=== PATIENT | male | born 1960 | race Caucasian/White ===

== ENCOUNTER 2016-08-25 21:36 | Inpatient (IN) | payer MEDICARE, MEDICAID, OTHER ==
[2016-08-25 22:32] VITALS: BMI 36.5
[2016-08-25] MEDS ORDERED: Sodium Chloride 0.9% 1,000 ML IV STA (23:30)
[2016-08-25 23:59] LABS: HEMATOCRIT 42.8 % (42.0-52.0); MEAN CELL VOLUME 95.7 fL (80.0-105.0); MEAN CORPUSCULAR HEMOGLOBIN 33.6 pg (25.0-35.0); MEAN PLATELET VOLUME 8.7 fl (7.0-11.0); RED CELL DISTRIBUTION WIDTH 13.4 % (11.5-14.5); WHITE BLOOD COUNT 12.9 10^3/ul (4.5-11.0)
[2016-08-26 00:09] LABS: ALKALINE PHOSPHATASE 84 U/L (38-133); ALT/SGPT 50 U/L (7-56); AST/SGOT 51 U/L (15-59); BILIRUBIN,TOTAL 0.8 mg/dL (0.2-1.3); BLOOD UREA NITROGEN 22 mg/dL (7-21); CALCIUM 9.1 mg/dL (8.4-10.5); CARBON DIOXIDE 29 mmol/L (21-33); CHLORIDE 98 mmol/L (98-107); GFR AFRICAN-AMERICAN > 60; GLUCOSE,RANDOM 116 mg/dL (70-110); LIPASE 262 U/L (23-300); POTASSIUM 4.2 mmol/L (3.6-5.0); SODIUM 136 mmol/L (132-148); TOTAL PROTEIN 7.9 g/dL (5.8-8.3)
--- NOTE | 2016-08-26 01:43 | ED PDOC ---
Arrival/HPI - General Chief Complaint: Abdominal Pain Time Seen by Provider: 08/25/16 23:01 Historian: Patient - History of Present Illness Narrative History of Present Illness (Text): 08/26/16 01:40 56 year old male whose past medical history includes hypertension, diabetes, and COPD complaining of nausea,intermittent vomiting, and diarrhea for the past week. Patient also notes intermittent abdominal cramp-like discomfort. He denies fever, chills, chest pain, or shortness of breath. He denies any travel outside the [place]. Time/Duration: 1 week Symptom Onset: Gradual Symptom Course: Unchanged Activities at Onset: Rest Past Medical History - Provider Review Nursing Documentation Reviewed: Yes - Tetanus Immunization Tetanus Immunization: Unknown - Cardiac Hx Cardiac Disorders: Yes Hx Angina: Yes Hx Cardiac Arrhythmia: No Hx Hypertension: Yes - Pulmonary Hx Respiratory Disorders: Yes Hx Asthma: Yes Hx Chronic Obstructive Pulmonary Disease (COPD): Yes Hx Emphysema: Yes - Neurological Hx Neurological Disorder: No - HEENT Hx HEENT Disorder: No - Renal Hx Renal Disorder: No - Endocrine/Metabolic Hx Endocrine Disorders: Yes Hx Diabetes Mellitus Type 2: Yes (diet controlled) - Hematological/Oncological Hx Blood Disorders: No - Integumentary Hx Dermatological Disorder: No - Musculoskeletal/Rheumatological Hx Musculoskeletal Disorders: Yes Hx Arthritis: Yes (spine, neck) Hx Back Pain: Yes Hx Falls: No Hx Osteoarthritis: Yes - Gastrointestinal Hx Gastrointestinal Disorders: No - Genitourinary/Gynecological Hx Genitourinary Disorders: No - Psychiatric Hx Psychophysiologic Disorder: No Hx Depression: No Hx Emotional Abuse: No Hx Physical Abuse: No Hx Substance Use: No - Surgical History Hx Cardiac Catheterization: Yes (feb 2012 neg) Hx Joint Replacement: Yes (bilateral hip replacement) Hx Orthopedic Surgery: Yes (B/L HIP REPLACEMENT) - Anesthesia Hx Anesthesia: Yes Hx Anesthesia Reactions: No Hx Malignant Hyperthermia: No - Suicidal Assessment Feels Threatened In Home Enviroment: No Family/Social History - Physician Review Nursing Documentation Reviewed: Yes Family/Social History: Unknown Family HX Smoking Status: Former Smoker Hx Alcohol Use: No Hx Substance Use: No Hx Substance Use Treatment: No Allergies/Home Meds Allergies/Adverse Reactions: Allergies No Known Allergies Allergy (Verified 08/25/16 22:32) Home Medications: Home Meds Medication Instructions Recorded Confirmed Albuterol HFA [Ventolin HFA 90 0.09 mg IH PRN PRN 04/24/12 08/25/16 mcg/actuation (8 g)] Lisinopril 20 mg PO DAILY 04/24/12 08/25/16 Metformin HCl 1,000 mg PO BID 04/24/12 08/25/16 Budesonide/Formoterol Fumarate 160 mcg BID 03/03/13 08/25/16 [Symbicort 80-4.5 Mcg Inhaler] Montelukast Sodium [Singulair] 10 mg PO DAILY 03/03/13 08/25/16 Cyclobenzaprine HCl [Flexeril] 10 mg PO TID PRN 02/15/16 08/25/16 Esomeprazole Magnesium [Nexium] 40 mg PO DAILY 02/15/16 08/25/16 Canagliflozin [Invokana] 300 mg PO DAILY 08/25/16 08/25/16 SITagliptin [Januvia] 100 mg PO DAILY 08/25/16 08/25/16 Review of Systems - Physician Review All systems were reviewed & negative as marked: Yes - Review of Systems Constitutional: absent: Fevers, Other (no chills) Respiratory: absent: SOB Cardiovascular: absent: Chest Pain Gastrointestinal: Diarrhea, Nausea, Vomiting, Other (+abdominal cramp-like discomfort) Physical Exam Vital Signs Reviewed: Yes Vital Signs Temp Pulse Resp BP Pulse Ox 08/26/16 04:17 81 16 104/66 95 08/26/16 03:35 78 16 112/62 99 08/26/16 00:00 84 16 106/56 L 93 L 08/25/16 22:34 99.7 F H 100 H 15 139/84 95 Temperature: Afebrile Blood Pressure: Normal Pulse: Regular Respiratory Rate: Normal Appearance: Positive for: Well-Appearing, Non-Toxic, Comfortable Pain Distress: None Mental Status: Positive for: Alert and Oriented X 3 - Systems Exam Head: Present: Atraumatic, Normocephalic Pupils: Present: PERRL Extroacular Muscles: Present: EOMI Conjunctiva: Present: Normal Mouth: Present: Moist Mucous Membranes Neck: Present: Normal Range of Motion Respiratory/Chest: Present: Clear to Auscultation, Good Air Exchange. No: Respiratory Distress, Accessory Muscle Use, Wheezes, Rales, Tachypneic Cardiovascular: Present: Regular Rate and Rhythm, Normal S1, S2. No: Murmurs, Gallop, Muffled Abdomen: Present: Normal Bowel Sounds. No: Tenderness, Distention, Peritoneal Signs, Rebound, Guarding Back: Present: Normal Inspection Upper Extremity: Present: Normal Inspection. No: Cyanosis, Edema Lower Extremity: Present: Normal Inspection. No: Edema Neurological: Present: GCS=15, CN II-XII Intact, Speech Normal Skin: Present: Warm, Dry, Normal Color. No: Rashes Psychiatric: Present: Alert, Oriented x 3, Normal Insight, Normal Concentration Medical Decision Making ED Course and Treatment: 08/26/16 01:44 Impression: 56 year old male complaining of nausea, vomiting, diarrhea, and abdominal discomfort. Physical exam unremarkable. Plan: --EKG --Labs --Pepcid, Zofran, Toradol, Morphine -- Reassess and disposition Prior Visits: Notes and results from previous visits were reviewed. Progress Notes: 08/26/16 01:45 EKG: Ordered, reviewed, and independently interpreted the EKG. Rate : 98 BPM Rhythm : NSR Interpretation : No acute changes 08/26/16 04:57 EXAM:CT Abdomen and Pelvis Without Intravenous Contrast Dictated and Authenticated by: Carlos Machado MD FINDINGS: Lower thorax: No acute findings. ABDOMEN: Liver: Fatty infiltration. Lobulated contour. Gallbladder and bile ducts: No calcified stones. No ductal dilation. Pancreas: Unremarkable. No ductal dilation. Spleen: No splenomegaly. Adrenals: No mass. Kidneys and ureters: No renal calculi. No hydronephrosis. Stomach and bowel: No definite mural thickening. Few minimally distended loops of small bowel, likely ileus. Appendix: Normal caliber. No inflammation. PELVIS: Bladder: Unremarkable. No stones. Reproductive: Unremarkable as visualized. ABDOMEN and PELVIS: Intraperitoneal space: No significant fluid collection. No free air. Bones/joints: Degenerative changes of spine. Bilateral hip arthroplasties. Soft tissues: Unremarkable. Vasculature: Unremarkable. No abdominal aortic aneurysm. Lymph nodes: No pathologically enlarged lymph nodes. IMPRESSION: 1. No definite acute intraabdominal abnormality. 2. Probable cirrhosis. 3. Incidental/non-acute findings are described above. - Lab Interpretations Lab Results: 08/25/16 23:50 08/25/16 23:50 Lab Results 08/25/16 23:50: WBC 12.9 H, RBC 4.47, Hgb 15.0, Hct 42.8, MCV 95.7, MCH 33.6, MCHC 35.0, RDW 13.4, Plt Count 188, MPV 8.7, Sodium 136, Potassium 4.2, Chloride 98, Carbon Dioxide 29, Anion Gap 13, BUN 22 H, Creatinine 0.9, Est GFR ( Amer) > 60, Est GFR (Non-Af Amer) > 60, Random Glucose 116 H, Calcium 9.1, Total Bilirubin 0.8, AST 51, ALT 50, Alkaline Phosphatase 84, Total Protein 7.9, Albumin 3.9, Globulin 4.0, Albumin/Globulin Ratio 1.0 L, Lipase 262 I have reviewed the lab results: Yes - RAD Interpretation Radiology Orders: 08/26/16 02:24 ABD & PELVIS W/O PO OR IV CONT [CT] Stat - Medication Orders Current Medication Orders: Discontinued Medications Famotidine (Pepcid) 20 mg IVP STAT STA Stop: 08/25/16 23:31 Last Admin: 08/26/16 00:01 Dose: 20 MG IVP Administration Document 08/26/16 00:01 EKE (Rec: 08/26/16 00:01 [place] [id number]- ATTEND) Charges for Administration # of IVP Administrations 1 Sodium Chloride (Sodium Chloride 0.9%) 1,000 mls @ 999 mls/hr IV .Q1H1M STA Stop: 08/26/16 00:30 Last Admin: 08/26/16 00:00 Dose: 999 MLS/HR eMAR Start Stop Document 08/26/16 00:00 EKE (Rec: 08/26/16 00:00 [place] [id number]- ATTEND) Intravenous Solution Start Date 08/26/16 Start Time 00:00 Ketorolac Tromethamine (Toradol) 30 mg IVP ONCE ONE Stop: 08/25/16 23:31 Last Admin: 08/26/16 00:01 Dose: 30 MG IVP Administration Document 08/26/16 00:01 EKEOO (Rec: 08/26/16 00:01 [place] [id number]- ATTEND) Charges for Administration # of IVP Administrations 1 Morphine Sulfate (Morphine) 4 mg IVP STAT STA Stop: 08/26/16 01:46 Last Admin: 08/26/16 01:59 Dose: 4 MG MAR Pain Assessment Document 08/26/16 01:59 EKEOO (Rec: 08/26/16 01:59 EKE[place] [id number]- ATTEND) Pain Reassessment Is this a pain reassessment? No Sleep Is patient sleeping during reassessment? No Presence of Pain Presence of Pain Yes IVP Administration Document 08/26/16 01:59 EKEOO (Rec: 08/26/16 01:59 EKE[place] [id number]- ATTEND) Charges for Administration # of IVP Administrations 1 Ondansetron HCl (Zofran Inj) 4 mg IVP ONCE ONE Stop: 08/25/16 23:31 Last Admin: 08/26/16 00:01 Dose: 4 MG IVP Administration Document 08/26/16 00:01 EKEOO (Rec: 08/26/16 00:01 EKEOO [id number]- ATTEND) Charges for Administration # of IVP Administrations 1 Ondansetron HCl (Zofran Inj) 4 mg IVP ONCE ONE Stop: 08/26/16 01:46 Last Admin: 08/26/16 01:59 Dose: 4 MG IVP Administration Document 08/26/16 01:59 EKEOO (Rec: 08/26/16 01:59 EKEOO [id number]- ATTEND) Charges for Administration # of IVP Administrations 1 - Scribe Statement The provider has reviewed the documentation as recorded by the Scribe Provider Attestation: Fallon Vasquez Provider Scribe Attestation: All medical record entries made by the Scribe were at my direction and personally dictated by me. I have reviewed the chart and agree that the record accurately reflects my personal performance of the history, physical exam, medical decision making, and the department course for this patient. I have also personally directed, reviewed, and agree with the discharge instructions and disposition. Disposition/Present on Arrival - Present on Arrival Any Indicators Present on Arrival: No History of DVT/PE: No History of Uncontrolled Diabetes: Yes Urinary Catheter: No History of Decub. Ulcer: No History Surgical Site Infection Following: None - Disposition Have Diagnosis and Disposition been Completed?: Yes Diagnosis: Intractable diarrhea, Abdominal pain, Ileus Disposition: HOSPITALIZED Disposition Time: 05:19 Patient Plan: Observation Condition: STABLE Referrals: Rich Menon MD [Primary Care Provider] - Follow up with primary
[2016-08-26] MEDS ORDERED: Morphine 4 mg/ml ISec IVP STA ×2 (01:45→05:23)
--- NOTE | 2016-08-26 04:14 | CT ---
EXAM: CT Abdomen and Pelvis Without Intravenous Contrast CLINICAL HISTORY: 56 years old, male; Pain; Abdominal pain TECHNIQUE: Axial computed tomography images of the abdomen and pelvis without intravenous contrast. This CT exam was performed using one or more of the following dose reduction techniques: automated exposure control, adjustment of the mA and/or kV according to patient size, and/or use of iterative reconstruction technique. Coronal and sagittal reformatted images were created and reviewed. COMPARISON: No relevant prior studies available. FINDINGS: Lower thorax: No acute findings. ABDOMEN: Liver: Fatty infiltration. Lobulated contour. Gallbladder and bile ducts: No calcified stones. No ductal dilation. Pancreas: Unremarkable. No ductal dilation. Spleen: No splenomegaly. Adrenals: No mass. Kidneys and ureters: No renal calculi. No hydronephrosis. Stomach and bowel: No definite mural thickening. No obstruction. Appendix: Normal caliber. No inflammation. PELVIS: Bladder: Unremarkable. No stones. Reproductive: Unremarkable as visualized. ABDOMEN and PELVIS: Intraperitoneal space: No significant fluid collection. No free air. Bones/joints: Degenerative changes of spine. Bilateral hip arthroplasties. Soft tissues: Unremarkable. Vasculature: Unremarkable. No abdominal aortic aneurysm. Lymph nodes: No pathologically enlarged lymph nodes. IMPRESSION: 1. No definite acute intraabdominal abnormality. 2. Probable cirrhosis. 3. Incidental/non-acute findings are described above.
[2016-08-26] MEDS ORDERED: Sodium Chloride 0.9% 1,000 ML IV STA (05:21)
[2016-08-26] MEDS ORDERED: LISINOPRIL 20 MG PO SCH (10:00)
[2016-08-26] MEDS: HYDROmorphone 0.5 mg/0.5 ml ISec IVP PRN ×3 (10:23→20:53)
[2016-08-26 10:51] LABS: URINE BILIRUBIN NEGATIVE (NEGATIVE); URINE BLOOD NEGATIVE (NEGATIVE); URINE GLUCOSE (UA) NEGATIVE (NEGATIVE); URINE KETONE NEGATIVE (NEGATIVE); URINE LEUKOCYTE ESTERASE NEGATIVE Leu/uL (NEGATIVE); URINE PROTEIN NEGATIVE mg/dL (<30 mg/dL); URINE UROBILINOGEN 0.2 E.U./dL (<1 E.U./dL)
[2016-08-26 10:52] LABS: URINE APPEARANCE CLEAR (CLEAR); URINE COLOR YELLOW (YELLOW)
[2016-08-26] MEDS: CANAGLIFLOZIN 300 MG PO SCH (10:57)
[2016-08-26 11:01] LABS: CHOLESTEROL 119 mg/dL (130-200)
[2016-08-26] MEDS: FORMOTEROL FUMARATE IH SCH ×2 (12:09→17:06)
[2016-08-26] MEDS: BUDESONIDE IH SCH ×2 (12:09→17:06)
[2016-08-26] MEDS: Insulin Reg-LOW-Coverage SC SCH ×2 (12:09→16:29)
[2016-08-26] MEDS: [UNRECOGNIZED DRUG - OTHER] IH SCH ×2 (12:09→17:06)
[2016-08-26] MEDS: Albuterol-Ipratrop 3 mg / 0.5 (3 ml) UD IH SCH ×2 (13:29→21:10)
[2016-08-26] MEDS: Sodium Chloride 0.9% 1,000 ML IV SCH (15:09)
[2016-08-26] MEDS ORDERED: Pneumococcal 23-Valent Vaccine IM ONE (15:38)
--- NOTE | 2016-08-26 20:19 | CON ---
DATE: 08/26/2016 REFERRING PHYSICIAN: Dr. Whitten. REASON FOR CONSULT: Chronic obstructive lung disease, history of sleep apnea syndrome. HISTORY OF PRESENT ILLNESS: This is a 56-year-old gentleman with a past medical history significant for chronic obstructive lung disease, obstructive sleep apnea syndrome, apparently does not have a CP AP/BiPAP machine. The last sleep study was done about [address] [facility]. Also has hype rtension. He came into Emergency Room with nausea, intermittent vomiting and diarrhea for the last c ouple of days, had abdominal cramps and could not keep anything down and was admitted for further wor kup. Today, he is lying in the bed, feels a little better, still has some abdominal pain. Will be s een by GI, Dr. Landis. PAST MEDICAL HISTORY: Chronic obstructive lung disease, diabetes, hypertension, obesity, sleep apnea syndrome, also with diet-controlled diabetes, arthritis and had bilateral hip replacements. ALLERGIES: None known. SOCIAL HISTORY: Nonsmoker, nondrinker. FAMILY HISTORY: No significant cardiopulmonary disease reported. MEDICATIONS: He is on Symbicort 80/4.5 two puffs twice a day at home, Invokana 300 mg daily, Dilaudi d 0.5 mg IV q.4 hours p.r.n., DuoNeb q.6 hours, metformin 1000 mg twice a day, insulin coverage, Ted via 100 mg daily, Protonix 40 mg daily, Singulair 10 mg daily, IV fluid normal saline 50 mL per hour, Zestril 20 mg daily. REVIEW OF SYSTEMS: No headache, no rhinitis, no cough. Got short of breath with exertion. No chest pain. Has abdominal pain and nausea. Denied any constipation, had a loose bowel movement. No dysu teresa. No leg pain or leg swelling. PHYSICAL EXAMINATION: GENERAL: Lying in the bed in no acute distress. VITAL SIGNS: Temp is 98, heart rate 63, respiratory rate is 20, blood pressure 104/65, pulse ox 96% on room air. HEENT: Moist mucous membranes. Crowded airway. Mallampati score is 4. NECK: Supple. No JVD. LUNGS: Has a fair airflow with a few rhonchi. HEART: S1 and S2. ABDOMEN: Soft, mild tenderness, nondistended. EXTREMITIES: There is no edema. NEUROLOGIC: Awake, alert, follows simple commands. LABORATORY DATA: Shows hemoglobin 15.0, hematocrit 42.8, WBC 12.9, platelet is 188. Sodium 136, pot assium 4.2, chloride 98, bicarbonate 29, BUN 22, creatinine 0.9, glucose 116, calcium is 9.1, AST 51, ALT 50, alkaline phosphatase is 84, albumin 3.9, cholesterol 119. Lipase is 262. Had a CAT scan of the abdomen and pelvis done today, which showed no definite acute intra-abdominal abnormality, proba haley cirrhosis. IMPRESSION AND PLAN: Chronic obstructive lung disease, obstructive sleep apnea syndrome, hypertensio n, obesity, diabetes. Has gastroenteritis, cause is unknown. The patient was seen by GI, Dr. Mela reyes. Pulmonary point of view, continue with inhaled bronchodilator. Keep head elevated at 45 degree. Will add BiPAP with 30% oxygen while sleeping. He will need outpatient repeat sleep study to qualify him for CPAP at home. If sedated, needs close cardiopulmonary monitoring while sedated. Thank you and will follow with you. Betty Corbin MD cc: [id number] TT: 08/26/2016 20:18:37 Confirmation # [id number] Dictation # [id number] dn
--- NOTE | 2016-08-26 21:30 | HP ---
CHIEF COMPLAINT: Abdominal pain. HISTORY OF PRESENT ILLNESS: The patient is a 56-year-old male with past medical history of hypertens ion, diabetes mellitus, COPD, came complaining of nausea, intermittent vomiting and diarrhea for the past week. The patient also noticed intermittent abdominal pain and cramp-like discomfort. He denie s fevers, chills, chest pain, shortness of breath. He denies any travel outside of the [place] . The patient was seen in his room, looks comfortable. Tolerating liquid diet very well. GI is on the case. PAST MEDICAL HISTORY: History of angina, hypertension, cardiac arrhythmia, respiratory distress, ast hma, COPD, history of emphysema, diabetes mellitus, arthritis, back pain, history of cardiac catheter ization, joint replacement, bilateral hip replacement. FAMILY HISTORY: Father and mother noncontributory. HABITS: Former smoker, now no smoking. No alcohol, no substance abuse. ALLERGIES: The patient is not allergic to any medications. HOME MEDICATIONS: Albuterol, lisinopril, metformin, Symbicort, Singulair, Flexeril, Nexium, Invokana , Januvia. REVIEW OF SYSTEMS: The patient seen and examined on the bedside in his room. Nausea and vomiting is a little bit better. Absent fever or chills. No shortness of breath. No chest pain. Diarrhea, vo miting and abdominal cramp-like discomfort is improving. PHYSICAL EXAMINATION: VITAL SIGNS: Temperature 97.6, pulse 63, blood pressure 104/65, respiratory rate 20. HEENT: Head normocephalic, atraumatic. Eyes: PERRLA. Extraocular muscles intact. Conjunctivae pin k. Eyelids unremarkable. Nose patent. Mucous membranes moist. NECK: Supple. No carotid bruit, JVD or thyromegaly. CHEST: Bilaterally symmetrical. HEART: S1, S2 positive. LUNGS: Clear to auscultation. ABDOMEN: Soft. Bowel sounds present. No organomegaly. EXTREMITIES: No edema, no cyanosis. NEUROLOGIC: The patient is awake, alert, moving all 4 extremities. No focal deficits. LABORATORY DATA: White blood cells 12.9, hemoglobin 15.0, hematocrit 42.8, platelets 188. Sodium 13 6, potassium 4.2, BUN 22, creatinine 0.9, glucose 111. Random glucose 116. Cholesterol 119. ASSESSMENT AND PLAN: The patient is a 56-year-old male with leukocytosis, increased BUN, hyperglycem ia, came with nausea, vomiting, diarrhea, abdominal pain. CAT scan of the abdomen and pelvis done. Looks like patient has ileus. Fatty infiltration, lobulated contour, looks like may be cirrhosis of the liver. Looks like degenerative changes in the spine and bilateral hip arthroplasties. The patien t has history of hypertension, diabetes mellitus, chronic obstructive pulmonary disease, emphysema, a sthma, diabetes mellitus type 2, diet controlled, as per patient, bilateral hip replacement. We admi tted the patient. GI consult called with Dr. Landis. Waiting for the input. Started patient on h ome medication, sliding scale. Pain medication. Gastrointestinal prophylaxis. Nauseousness is yfn r. We will follow up. Jenifer Whitten MD cc: [id number] TT: 08/26/2016 21:30:39 ulisses
[2016-08-27] MEDS: Albuterol-Ipratrop 3 mg / 0.5 (3 ml) UD IH SCH ×4 (01:26→19:56)
[2016-08-27 06:48] LABS: MEAN CELL VOLUME 97.4 fL (80.0-105.0); MEAN CORPUSCULAR HEMOGLOBIN 33.8 pg (25.0-35.0); MEAN CORPUSCULAR HGB CONC 34.7 g/dl (31.0-37.0); MEAN PLATELET VOLUME 8.6 fl (7.0-11.0); RED CELL DISTRIBUTION WIDTH 13.5 % (11.5-14.5); WHITE BLOOD COUNT 4.5 10^3/ul (4.5-11.0)
[2016-08-27 06:49] LABS: HEMATOCRIT 37.5 % (42.0-52.0)
[2016-08-27 06:53] LABS: ALB/GLOB RATIO 0.9 (1.1-1.8); ALKALINE PHOSPHATASE 51 U/L (38-133); ALT/SGPT 53 U/L (7-56); AST/SGOT 56 U/L (15-59); BILIRUBIN,TOTAL 0.5 mg/dL (0.2-1.3); BLOOD UREA NITROGEN 15 mg/dL (7-21); CALCIUM 8.7 mg/dL (8.4-10.5); CARBON DIOXIDE 32 mmol/L (21-33); CHLORIDE 103 mmol/L (98-107); CHOLESTEROL 117 mg/dL (130-200); GFR AFRICAN-AMERICAN > 60; GLUCOSE,RANDOM 96 mg/dL (70-110); POTASSIUM 4.1 mmol/L (3.6-5.0); SODIUM 141 mmol/L (132-148); TOTAL PROTEIN 6.7 g/dL (5.8-8.3)
[2016-08-27] MEDS: Insulin Reg-LOW-Coverage SC SCH ×4 (07:44→22:30)
[2016-08-27] MEDS: Pantoprazole 40 mg EC Tab PO SCH (08:06)
[2016-08-27] MEDS ORDERED: Iohexol 240 (50 ml) ONE (09:52)
[2016-08-27] MEDS: FORMOTEROL FUMARATE IH SCH ×2 (10:01→17:16)
[2016-08-27] MEDS: BUDESONIDE IH SCH ×2 (10:01→17:16)
[2016-08-27] MEDS: [UNRECOGNIZED DRUG - OTHER] IH SCH ×2 (10:01→17:16)
[2016-08-27] MEDS: CANAGLIFLOZIN 300 MG PO SCH (10:02)
[2016-08-27] MEDS: Sodium Chloride 0.9% 1,000 ML IV SCH (10:03)
[2016-08-27] MEDS ORDERED: Iohexol 350 MG/100 ML VIAL ONE (11:31)
--- NOTE | 2016-08-27 13:22 | CT ---
PROCEDURE: CT Abdomen and Pelvis with contrast HISTORY: r/o enteritis, r/o partial obstruction COMPARISON: 08/26/2016 TECHNIQUE: Contrast dose: 100 cc of Omnipaque. This CT exam was performed using one or more of the following dose reduction techniques: Automated exposure control, adjustment of the mA and/or kV according to patient size, and/or use of iterative reconstruction technique. Helical scans were obtained through the abdomen pelvis followed by sagittal coronal reconstructions. Radiation dose: Total exam DLP = 1052 mGy-cm. FINDINGS: LOWER THORAX: Unremarkable. LIVER: Diffuse fatty infiltration of the liver with questionable nodular contour of the liver which could indicate underlying cirrhosis. GALLBLADDER AND BILE DUCTS: Unremarkable. PANCREAS: Unremarkable. No gross lesion or ductal dilatation. SPLEEN: Unremarkable. ADRENALS: Unremarkable. No mass. KIDNEYS AND URETERS: Unremarkable. No hydronephrosis. No solid mass. VASCULATURE: Unremarkable. No aortic aneurysm. BOWEL: Unremarkable. No obstruction. No gross mural thickening. APPENDIX: Normal appendix. PERITONEUM: Scattered mesenteric lymph nodes.. No free fluid. No free air. LYMPH NODES: Unremarkable. No enlarged lymph nodes. BLADDER: Unremarkable. REPRODUCTIVE: Unremarkable. BONES: No acute fracture. Bilateral hip arthroplasties. OTHER FINDINGS: None. IMPRESSION: Fatty infiltration liver.; question underlying cirrhotic change. No evidence of acute phlegmon or obstruction.
[2016-08-27] MEDS ORDERED: Peg-Electrolyte Oral Soln 4L (Golytely) PO ONE (16:47)
--- NOTE | 2016-08-27 17:00 | CARD ---
APPROVED REPORT EKG Measurement Heart [id number] <Conclusion> Normal sinus rhythm Normal ECG
--- NOTE | 2016-08-27 19:26 | PN ---
DATE: 08/27/2016 REFERRING PHYSICIAN: Dr. Whitten. SUBJECTIVE: He is lying in the bed. Family is at bedside. Night was unremarkable. He used BiPAP a bout an hour or 2 hours. No headache, no rhinitis, no cough, no sputum production, no nausea. Still having mild abdominal discomfort. No diarrhea today. No leg pain or leg swelling. OBJECTIVE: GENERAL: In no acute distress. VITAL SIGNS: Temp is 98, heart rate 60, respiratory rate is 20, blood pressure 107/69, pulse ox 97% on supplemental oxygen. HEENT: Moist mucous membranes. Crowded airway. Mallampati score is 4. NECK: Supple. No JVD. LUNGS: Has a fair airflow with a few rhonchi. HEART: S1 and S2. ABDOMEN: Obese, soft. Mild tenderness. EXTREMITIES: There is no edema. NEUROLOGIC: Awake, alert, follows simple commands. MEDICATIONS: He is on Invokana 300 mg p.o. daily, Dilaudid 0.5 mg q.4 hours p.r.n., DuoNeb q.6 hours , insulin coverage, Januvia 100 mg daily, Protonix 40 mg daily, Singulair 10 mg daily, IV fluid abigail l saline 50 mL per hour, Zestril 20 mg daily, Zofran on a p.r.n. basis. LABORATORY DATA: Shows hemoglobin 13.0, hematocrit 37.5, WBC 12.5, platelet count is 150. Sodium 14 1, potassium 4.1, chloride 103, bicarbonate is 32, BUN 15, creatinine 0.9, glucose is 96, calcium 8.7 , AST 56, ALT 53, alkaline phosphatase is 51, albumin 3.1, cholesterol is 117. TSH . Repeat CT of the abdomen and pelvis was done today, which is significant for a fatty liver and some cirr hosis. IMPRESSION AND PLAN: Chronic obstructive lung disease, obstructive sleep apnea syndrome, hypertensio n, diabetes, gastroenteritis, dehydration requiring fluid resuscitation. I had a long discussion wit h the patient about sleep apnea and its consequences. Urged him to use BiPAP. Will try BiPAP tonigh t. Will keep head elevated at 45 degree. Once cleared by gastroenterology, could be discharged home and further workup as an outpatient. Thank you and will follow with you. Betty Corbin MD cc: [id number] TT: 08/27/2016 19:26:42 Confirmation # [id number] Dictation # [id number] dn
--- NOTE | 2016-08-27 20:55 | PN ---
DATE: 08/27/2016 SUBJECTIVE: The patient seen and examined on the bedside, looks comfortable. No nausea, vomiting, diarrhea. Abdominal pain is getting better. Tolerating liquid food very well, seen by GI. No fever, no chills. PHYSICAL EXAMINATION: VITAL SIGNS: Temperature 97.6, pulse 60, blood pressure 107/69, respiratory rate 20. HEENT: Head normocephalic, atraumatic. Eyes PERRLA. Extraocular muscles intact. Conjunctivae clear. Eyelids unremarkable. Nose patent. Mucous membranes moist. NECK: Supple. No carotid bruit, JVD or thyromegaly. CHEST: Bilaterally symmetrical. HEART: S1, S2 positive. LUNGS: Clear to auscultation. ABDOMEN: Soft. Bowel sounds present. No organomegaly. EXTREMITIES: No edema, no cyanosis. NEUROLOGIC: The patient is awake, alert, moving all 4 extremities. No focal deficit. MEDICATIONS: Symbicort, Invokana, Dilaudid, albuterol, insulin and Januvia, Protonix, Singulair, Zestril, Zofran. LABORATORY DATA: White blood cells 10.5, hemoglobin noted, hematocrit 37.5, platelets 150. Sodium 141, potassium 4.0, BUN 15, creatinine 0.9, cholesterol 117. ASSESSMENT AND PLAN: The patient is a 56-year-old male with leukocytosis, got better; anemia, hemoglobin dropped, increased BUN, hyperglycemia. Went for CAT scan of the abdomen and pelvis with contrast, shows fatty infiltration of the liver, questionable underlying cirrhotic changes, no evidence of acute phlegmon or obstruction. Seen by Dr. Corbin. Chronic obstructive lung disease, hypertension, obesity, sleep apnea syndrome, diabetes mellitus, arthritis, bilateral hip replacement. Discussion done with Dr. Landis. Maybe patient will go tomorrow for colonoscopy or endoscopy. Gastrointestinal and deep venous thrombosis prophylaxis. Repeat labs. We will follow up. Jenifer Whitten MD cc: [id number] TT: 08/27/2016 20:54:50 Confirmation # [id number] Dictation # [id number]
--- NOTE | 2016-08-27 22:35 | CP.PCM.PN ---
Subjective - Date & Time of Evaluation Date of Evaluation: 08/27/16 Time of Evaluation: 22:34 - Subjective Subjective: S:Patient was seen at [facility] because he asked for something for sleep. Has no other complaints now. Denies chest pain, sob. Pertinent medical record was reviewed. O: Last Vital Signs 3 Temp 97.6 F 08/27/16 16:00 Pulse 66 08/27/16 23:15 Resp 20 08/27/16 16:00 BP 128/82 08/27/16 16:00 Pulse Ox 96 08/27/16 16:00 Awake, alert, not in distress. Obese person. LUNGS:Normal breathing pattern. NEURO:Speech normal. A:Adjustment insomnia. P:Benadryl 50 mg PO X 1. Objective - Vital Signs/Intake and Output Vital Signs (last 24 hours): Temp Pulse Resp BP Pulse Ox 97.6 F 63 20 128/82 96 08/27/16 16:00 08/27/16 16:00 08/27/16 16:00 08/27/16 16:00 08/27/16 16:00 Intake and Output: 08/27/16 08/28/16 18:59 06:59 Intake Total 1200 900 Balance 1200 900 - Medications Medications: Current Medications Albuterol/Ipratropium (Duoneb 3 Mg/0.5 Mg (3 Ml) Ud) 3 ml IH [id number] [facility] Last Admin: 08/27/16 19:56 Dose: 3 ml Hydromorphone HCl (Dilaudid) 0.5 mg IVP Q4H PRN PRN Reason: Pain, Mild (1-3) Last Admin: 08/26/16 20:53 Dose: 0.5 mg Sodium Chloride (Sodium Chloride 0.9%) 1,000 mls @ 50 mls/hr IV .Q20H [facility] Last Admin: 08/27/16 10:03 Dose: 50 mls/hr Insulin Human Regular (Humulin R Low) 0 units SC ACHS [facility] PRN Reason: Protocol Last Admin: 08/27/16 22:30 Dose: Not Given Lisinopril (Zestril) 20 mg PO DAILY [facility] Last Admin: 08/27/16 09:39 Dose: 20 mg Montelukast Sodium (Singulair) 10 mg PO DAILY [facility] Last Admin: 08/27/16 09:38 Dose: 10 mg Non-Formulary Medication (Budesonide/Formoterol Fumarate [Symbicort 80-4.5 Mcg Inhaler]) 160 mcg IH BID [facility] Last Admin: 08/27/16 17:16 Dose: Not Given Non-Formulary Medication (Canagliflozin [Invokana]) 300 mg PO DAILY [facility] Last Admin: 08/27/16 10:02 Dose: Not Given Ondansetron HCl (Zofran Inj) 4 mg IVP Q6H PRN PRN Reason: Nausea/Vomiting Last Admin: 08/26/16 22:24 Dose: 4 mg Pantoprazole Sodium (Protonix Ec Tab) 40 mg PO ACB [facility] Last Admin: 08/27/16 08:06 Dose: 40 mg Sitagliptin Phosphate (Januvia) 100 mg PO DAILY [facility] Last Admin: 08/27/16 10:02 Dose: Not Given - Labs Labs: 08/27/16 06:37 08/27/16 06:37
--- NOTE | 2016-08-27 23:52 | CON ---
DATE: 08/27/2016 This patient was seen and evaluated earlier. The patient's was at bedside. PHYSICAL EXAMINATION: VITAL SIGNS: Temperature is 97.6, pulse is 63, blood pressure 128/82. HEENT: Atraumatic, anicteric. NECK: Supple. HEART: S1, S2 heard. LUNGS: Bilateral air entry present. ABDOMEN: Soft and mild tenderness on deep palpation in the periumbilical area. No rebound. No guarding. EXTREMITIES: No edema. No cyanosis. NEUROLOGIC: Alert, oriented. Moves all the extremities. LABORATORY DATA: Hemoglobin 13, hematocrit 37.5, WBC 4.5, platelets 150. BUN 15, creatinine is 0.9. The repeat CT of the abdomen and pelvis was reviewed and the CT is suggestive mostly of cirrhosis of the liver. No obstruction or enteritis per the note history. IMPRESSION: Chronic abdominal pain for more than 4 weeks now worsening of the symptoms recently with vomiting, abdominal pain, and intermittent episodes of diarrhea. The differential diagnosis should include inflammatory bowel disease. Rule out partial obstruction, but the CT did not reveal any obstruction. Part of the symptoms can be also due to drug induced. The patient was on Januvia and also metformin, which has been on hold. .We would consider esophagogastroduodenoscopy and a colonoscopy to further evaluate in view of the worsening of the symptoms and abdominal pain. Also, requested the patient to discuss with the hand thermal cutter regarding discontinuing the Januvia and also metformin for a short period of time, at least, and this could also be a contributing factor for his abdominal discomfort. We will recommend further suggestions after esophagogastroduodenoscopy and colonoscopic evaluation. The patient has normal liver function tests, but the CT finding raises a question about possible cirrhosis. This could be fatty liver disease. Would request for a hepatitis profile. Hepatitis profile done in the past was negative. We would repeat the hepatitis profile and also autoimmune markers. Thank you very much for allowing us to participate in the care of the patient. Amanda Landis MD cc: [id number] TT: 08/27/2016 23:50:58 Confirmation # [id number] Dictation # [id number] tn MTDD
[2016-08-28] MEDS: Albuterol-Ipratrop 3 mg / 0.5 (3 ml) UD IH SCH ×4 (02:00→20:35)
--- NOTE | 2016-08-28 08:23 | CON ---
DATE: 08/26/2016 This patient was seen and evaluated earlier. This 56-year-old patient with a past medical history of diabetes mellitus, hypertension, COPD, admitted with episodes of worsening of the symptoms of abdominal pain, diarrhea, intermittent , and vomiting. The patient said this started about a month ago, episodes of diarrhea with cramping discomfort and also nausea. No history of any bleeding per rectum. No similar episodes before the month. No fever. He is concerned about the frequency of the diarrhea and also abdominal cramping discomfort. Other past medical history is significant for bilateral hip replacement, history of coronary artery disease, status post cardiac catheterization in 2011. He mentioned it was negative at that time. FAMILY HISTORY: Noncontributory. SOCIAL HISTORY: Ex-smoker. No smoking. Denies any alcohol. ALLERGIES: No known drug allergy. REVIEW OF SYSTEMS: Positive as above. All other systems reviewed and negative. No chest pain, no palpitations, no dysuria. PHYSICAL EXAMINATION: GENERAL: The patient is lying on the bed, not in acute distress. VITAL SIGNS: Pulse 78, blood pressure is 152/90, respirations 20, O2 sat is 97% . HEENT: Atraumatic, anicteric. NECK: Supple. HEART: S1, S2 heard. LUNGS: Bilateral air entry present. ABDOMEN: Soft, no mass, no tenderness. EXTREMITIES: No edema, no cyanosis. NEUROLOGIC: Alert, oriented. Moves all the extremities. No focal deficits otherwise. LABORATORY DATA: Hemoglobin is 15, hematocrit 42.8, WBCs 12.9, platelets 188. Chemistry is LFTs normal. Glucose 116. CT scan of the abdomen and pelvis done with p.o. contrast was reviewed and is limited study due to lack of oral and IV contrast. There was suspected probable cirrhosis because irregular surface of the liver. IMPRESSION: 1. Abdominal pain, episodes of diarrhea and vomiting, rule out inflammatory bowel disease, rule out partial obstruction, rule out colitis. 2. The patient had endoscopy about 7 years ago. He was told it was gastritis. He was treated for a short period. 3. His other comorbidities as above, hypertension, diabetes mellitus, chronic obstructive pulmonary disease. RECOMMENDATIONS: 1. Stool for culture. 2. The etiology of abdominal pain is unclear. The differential diagnosis as mentioned above would include inflammatory bowel disease. Would recommend repeating the CT with p.o. and IV contrast. The patient was off the metformin more than 3 days now. He said he stopped taking it . 3. Irregular liver surface, rule out cirrhosis. Would request for hepatitis profile. The patient is also on januvia and that sometimes can cause pancreatitis, abdominal pain. The patient's lipase level at the time of admission was normal. The patient was also on metformin, which can cause diarrhea. The reasonable approach is to repeat the CT with p.o. and IV contrast. Then, consider further evaluation including EGD and a colonoscopy to rule out any peptic ulcer disease, rule out inflammatory bowel disease. We will continue to closely follow up her care and suggest further management based on the clinical course. Amanda Landis MD cc: [id number] TT: 08/27/2016 09:06:39 Confirmation # [id number] Dictation # [id number] en MTDD
[2016-08-28] MEDS: Pantoprazole 40 mg EC Tab PO SCH (08:45)
[2016-08-28] MEDS: Insulin Reg-LOW-Coverage SC SCH ×3 (08:45→16:48)
[2016-08-28 10:49] LABS: BLOOD UREA NITROGEN 10 mg/dL (7-21); CALCIUM 8.9 mg/dL (8.4-10.5); CARBON DIOXIDE 29 mmol/L (21-33); CHLORIDE 103 mmol/L (95-110); GFR AFRICAN-AMERICAN > 60; GLUCOSE,RANDOM 93 mg/dL (70-110); POTASSIUM 3.8 mmol/L (3.6-5.0); SODIUM 144 mmol/L (132-148)
[2016-08-28 11:00] LABS: INR 1.1 (0.93-1.08); PARTIAL THROMBOPLASTIN TIME 25.8 Seconds (23.7-30.8)
--- NOTE | 2016-08-28 12:40 | RAD ---
HISTORY: preop COMPARISON: No prior. TECHNIQUE: Chest PA and lateral FINDINGS: LUNGS: No active pulmonary disease. PLEURA: No significant pleural effusion identified. No pneumothorax apparent. CARDIOVASCULAR: Normal. OSSEOUS STRUCTURES: No significant abnormalities. VISUALIZED UPPER ABDOMEN: Normal. OTHER FINDINGS: None. IMPRESSION: No active disease.
[2016-08-28] MEDS ORDERED: Propofol 10 mg/ml Inj (20 ML) ONE (13:18)
[2016-08-28] MEDS ORDERED: Midazolam 2 MG/2 ML VIAL ONE (13:19)
[2016-08-28] MEDS ORDERED: Ampicillin/Sulbactam 1.5 gm Inj ONE (13:59)
[2016-08-28] MEDS ORDERED: Sodium Chloride 0.9% 1,000 ML IV SCH (14:30)
[2016-08-28 15:50] VITALS: RESP 20
--- NOTE | 2016-08-28 18:40 | PN ---
DATE: 08/28/2016 REFERRING PHYSICIAN: Dr. Whitten. SUBJECTIVE: The patient is sitting side of the bed waiting for endoscopy. Night was unremarkable. Tolerated CPAP well. No headache, no rhinitis, no nausea, mild abdominal discomfort. No leg pain or leg swelling. OBJECTIVE: GENERAL: No acute distress. VITAL SIGNS: Temp is 98, heart rate 61, respiratory rate is 18, blood pressure 105/62, pulse ox 98% on 3 liter nasal cannula. HEENT: Moist mucous membrane. Crowded airway. Mallampati score is 4. NECK: Supple. No JVD. LUNGS: Has a fair airflow with few rhonchi. HEART: S1 and S2. ABDOMEN: Soft, nontender. No organomegaly. EXTREMITIES: There is no edema. NEUROLOGIC: Awake, alert, follows simple command. MEDICATIONS: He is on Invokana 300 mg daily, Dilaudid 0.5 mg q. 4 hours p.r.n., DuoNeb q. 6 hours, insulin coverage, Januvia 100 mg daily, Protonix 40 mg a.c.b,c., Singulair 10 mg daily, IV fluid norm al saline 50 mL per hour, Zestril 20 mg daily, Zofran on a p.r.n. basis. LABORATORY DATA: Reviewed. INR 1.10. Sodium 144, potassium 3.8, chloride 103, bicarbonate 29, BUN 10, creatinine 0.9, glucose is 93, calcium is 8.9. TSH 0.99. Endoscopy report shows 1 diminutive po lyp in the sigmoid colon, resected and retrieved, internal hemorrhoid. Also had EGD done, which show s esophageal mucosal changes suggestive of short segment Torres's esophagus, also grade II esophagea l varices, erosive gastropathy. Had a chest x-ray done today which shows there are no infiltrates or effusions. IMPRESSION AND PLAN: Admitted with gastroenteritis, esophagitis, Torres's esophagus, colonic polyp, obesity, chronic obstructive lung disease, obstructive sleep apnea syndrome, hypertension, diabetes. Pulmonary point of view, he is doing okay. Once cleared by GI could be discharged and needs outpat ient attended sleep study. Thank you and will follow with you. Betty Corbin MD cc: [id number] TT: 08/28/2016 18:39:17 Confirmation # [id number] Dictation # [id number] jn
[2016-08-29] MEDS: Albuterol-Ipratrop 3 mg / 0.5 (3 ml) UD IH SCH ×3 (01:25→13:58)
[2016-08-29 08:00] VITALS: BP 115/72; PULSE 62; TEMP 98.4; O2SAT 95
[2016-08-29] MEDS: Insulin Reg-LOW-Coverage SC SCH ×2 (08:27→11:55)
--- NOTE | 2016-08-29 09:29 | PN ---
DATE: 08/28/2016 SUBJECTIVE: The patient was seen on 08/28/2016 before colonoscopy or endoscopy, was sitting on the b ed waiting for endoscopy. Tolerated CPAP very well. No nausea, vomiting, or diarrhea. No fever. N o hematuria or hematochezia. Still feeling abdominal pain once in a while. PHYSICAL EXAMINATION: VITAL SIGNS: Temperature 98, heart rate 61, respiratory rate 18, blood pressure 105/62, and pulse ox imetry 98% on 3 liters nasal cannula. HEENT: Head normocephalic, atraumatic. Eyes: PERRLA. Extraocular muscles intact. Conjunctivae pi nk. Eyelids unremarkable. Nose patent. Mucous membranes moist. NECK: Supple. No carotid bruit. No JVD or thyromegaly. CHEST: Bilaterally symmetrical. HEART: S1, S2 positive. LUNGS: Clear to auscultation. ABDOMEN: Soft. Tender on deep palpation. No organomegaly. EXTREMITIES: No edema, no cyanosis. NEUROLOGIC: The patient is awake, alert, moving all 4 extremities. No focal deficits. MEDICATIONS: Invokana, Dilaudid, DuoNeb, Januvia, Protonix, Singulair, IV fluid, Zestril, Zofran. LABORATORY DATA: INR 1.10. Sodium 144, potassium 3.8, BUN 10, creatinine 0.9, glucose 93. TSH 0.99 . ASSESSMENT AND PLAN: The patient is a 56-year-old male admitted with severe gastroenteritis esophagi tis, Torres esophagus, colonic polyp, obesity, chronic obstructive lung disease, obstructive sleep a pnea syndrome, hypertension, diabetes mellitus. Went for endoscopy. Shows polyp in the sigmoid colo n, resected and retrieved; internal hemorrhoids. Also had EGD done which shows esophageal mucosal ch anges suggestive of a short segment Torres esophagus, also grade II esophageal varices, erosive john ropathy. Chest x-ray shows no infiltrates or effusion. Diet advanced. Will see how he is doing. I f he is doing better, will discharge home with follow up as outpatient. Meanwhile, continue Invokana for diabetes. Will discontinue Dilaudid. Januvia for diabetes. Protonix for esophagitis and gastr itis. Zestril for blood pressure. Will follow up. Jenifer Whitten MD cc: [id number] TT: 08/29/2016 09:28:16 Confirmation # [id number] Dictation # [id number] mn
[2016-08-29] MEDS: CANAGLIFLOZIN 300 MG PO SCH (09:59)
[2016-08-29] MEDS: [UNRECOGNIZED DRUG - OTHER] IH SCH (09:59)
[2016-08-29] MEDS: BUDESONIDE IH SCH (09:59)
[2016-08-29] MEDS: FORMOTEROL FUMARATE IH SCH (09:59)
[2016-08-29] MEDS: Pantoprazole 40 mg EC Tab PO SCH (10:01)
--- NOTE | 2016-08-29 11:18 | US ---
PROCEDURE: Portal vein duplex ultrasound. CLINICAL HISTORY: Cirrhosis. Deteriorating liver function. Evaluate for portal vein thrombosis. PHYSICIAN(S): Mihir Gayle M.D. FINDINGS: The exam is extremely limited due to body habitus and bowel gas. The extrahepatic portal vein is patent with hepatopetal flow. No sonographic evidence for thrombus or obstruction is seen. The 3 hepatic veins are poorly visualized centrally and patent. The hepatic artery is patent. The spleen is upper limits of normal in size. No ascites is appreciated in the upper abdomen. IMPRESSION: 1. Patent portal vein with hepatopetal flow. 2. Limited study.
--- NOTE | 2016-08-29 14:11 | PN ---
DATE: 08/29/2016 Seen and examined at the bedside earlier this morning. The patient had an endoscopy and colonoscopy yesterday. The patient was found to have grade II varices, Torres's esophagus and erosive gastropat hy as well as colon polyps that were removed and rectal varices. Biopsies were obtained to rule out microscopic colitis. The patient went for abdominal Doppler this morning. No acute overnight events reported. Denies any shortness of breath, chest pain, fever or chills. No overt bleeding. VITAL SIGNS: Temperature is 98.4, blood pressure is 115/72, pulse 62, respirations 20, 95 on room ai r. BLOOD WORK: No new labs are noted for today. Abdominal Doppler: Patent portal vein with hepatopedal flow and limited study. No evidence of sonogr aphic evidence for a thrombus or obstruction is seen. The 3 hepatic veins are poorly visualized cent rally and patent. The hepatic artery is patent. PHYSICAL EXAMINATION: HEENT: Sclerae anicteric. NECK: Supple. CARDIAC: S1, S2. LUNGS: With decreased breath sounds but good air entry. No rales or wheeze. ABDOMEN: With bowel sounds. Softly obese. Nontender on palpation. No rebound, guarding, or organo megaly. ASSESSMENT: This is a 56-year-old male with a history of chronic hypertension, diabetes, obesity, st atus post esophagogastroduodenoscopy and colonoscopy for chronic diarrhea and abdominal pain. Colono scopy was found to have colon polyps that were resected and retrieved as well as rectal varices. Bio psies were obtained to rule out microscopic colitis. On endoscopy, found to have a short segment Bar rett's esophagus, grade II esophageal varices, erosive gastropathy. PLAN: He is to continue Protonix 40 daily. The patient may benefit from a nonselective beta jorge l . Follow up stool studies for C. diff and culture. The patient was seen and case discussed with Dr. Landis. Lilia Pabloes RAHEL cc: [id number] TT: 08/29/2016 14:11:15 Confirmation # [id number] Dictation # [id number] mn
== END 2016-08-29 15:24 | disposition home or self-care (01) | DRG 392 ==
LOC: ED 21:36 → ERH 08-26 05:19 → 5RNO 08-26 07:04 → OBSVTOIN 08-26 19:21
PROVIDERS: ADMIT Internal Medicine; ATTEND Internal Medicine
PROC: 5A09457 Assistance with Respiratory Ventilation, 24-96 Consecutive Hours, Continuous Positive Airway Pressure (ICD-10-PCS; 2016-08-26)
PROC: 3E0F7GC Introduction of Other Therapeutic Substance into Respiratory Tract, Via Natural or Artificial Opening (ICD-10-PCS; 2016-08-26)
PROC: 0DB68ZX Excision of Stomach, Via Natural or Artificial Opening Endoscopic, Diagnostic (ICD-10-PCS; principal; 2016-08-28 13:30)
PROC: 0DBN8ZZ Excision of Sigmoid Colon, Via Natural or Artificial Opening Endoscopic (ICD-10-PCS; 2016-08-28 13:30)
PROC: 0DBE8ZX Excision of Large Intestine, Via Natural or Artificial Opening Endoscopic, Diagnostic (ICD-10-PCS; 2016-08-28 13:30)
DX: K52.9 Noninfective gastroenteritis and colitis, unspecified (principal); I85.00 Esophageal varices without bleeding; E11.65 Type 2 diabetes mellitus with hyperglycemia; I10 Essential (primary) hypertension; J44.9 Chronic obstructive pulmonary disease, unspecified; G47.33 Obstructive sleep apnea (adult) (pediatric); J45.909 Unspecified asthma, uncomplicated; I25.10 Atherosclerotic heart disease of native coronary artery without angina pectoris; F51.02 Adjustment insomnia; K22.70 Barrett's esophagus without dysplasia; K20.9 Esophagitis, unspecified; K31.9 Disease of stomach and duodenum, unspecified; K63.5 Polyp of colon; K64.8 Other hemorrhoids; I86.8 Varicose veins of other specified sites; D64.9 Anemia, unspecified; E86.0 Dehydration; K29.70 Gastritis, unspecified, without bleeding; M19.90 Unspecified osteoarthritis, unspecified site; E66.9 Obesity, unspecified; Z96.643 Presence of artificial hip joint, bilateral; Z68.36 Body mass index [BMI] 36.0-36.9, adult; Z87.891 Personal history of nicotine dependence

== ENCOUNTER 2017-05-30 08:24 | Emergency (ER) | payer MEDICARE ==
[2017-05-30 08:24] VITALS: BMI 38.2
[2017-05-30 09:05] VITALS: RESP 18
[2017-05-30] MEDS ORDERED: Sodium Chloride 0.9% 1,000 ML IV STA (09:17)
[2017-05-30] MEDS ORDERED: Iohexol 240 (50 ml) ONE (09:21)
[2017-05-30] MEDS ORDERED: Morphine 4 mg/ml ISec IVP STA (09:21)
--- NOTE | 2017-05-30 09:52 | ED PDOC ---
Arrival/HPI - General Chief Complaint: GI Problem Time Seen by Provider: 05/30/17 09:16 Historian: Patient - History of Present Illness Narrative History of Present Illness (Text): 05/30/17 09:30 Bc Luna Jr. is a 56 year old male, whose past medical history includes endoscopy and colonoscopy last year, who presents to the emergency department complaining of lower abdominal pain with associated mild nausea and non-bloody diarrhea for the past few days. Patient denies any recent travel, sick contact, appetite changes, or any other complaints at this time. Time/Duration: < week Symptom Onset: Gradual Symptom Course: Unchanged Activities at Onset: Light Context: Home Past Medical History - Provider Review Nursing Documentation Reviewed: Yes - Infectious Disease Hx of Infectious Diseases: None - Tetanus Immunization Tetanus Immunization: Unknown - Cardiac Hx Cardiac Disorders: Yes Hx Angina: Yes Hx Cardiac Arrhythmia: No Hx Hypertension: Yes - Pulmonary Hx Respiratory Disorders: Yes (SMOKED CIGARETTES QUIT 1986) Hx Asthma: Yes - Neurological Hx Neurological Disorder: No - HEENT Hx HEENT Disorder: Yes (DEVIATED SEPTUM SX X 2) - Renal Hx Renal Disorder: No - Endocrine/Metabolic Hx Endocrine Disorders: Yes Hx Diabetes Mellitus Type 2: Yes (diet controlled) - Hematological/Oncological Hx Blood Transfusions: No Hx Blood Transfusion Reaction: No - Integumentary Hx Dermatological Disorder: No - Musculoskeletal/Rheumatological Other/Comment: BILATERAL HIP REPLACEMENT - Gastrointestinal Hx Gastrointestinal Disorders: No - Genitourinary/Gynecological Hx Genitourinary Disorders: No - Psychiatric Hx Psychophysiologic Disorder: No Hx Depression: No Hx Emotional Abuse: No Hx Physical Abuse: No Hx Substance Use: No - Surgical History Hx Cardiac Catheterization: Yes (feb 2012 neg) Hx Joint Replacement: Yes (bilateral hip replacement) Hx Orthopedic Surgery: Yes (B/L HIP REPLACEMENT) - Anesthesia Hx Anesthesia Reactions: No Hx Malignant Hyperthermia: No - Suicidal Assessment Feels Threatened In Home Enviroment: No Family/Social History - Physician Review Nursing Documentation Reviewed: Yes Family/Social History: No Known Family HX Smoking Status: Former Smoker Hx Alcohol Use: No Hx Substance Use: No Hx Substance Use Treatment: No Allergies/Home Meds Allergies/Adverse Reactions: Allergies No Known Allergies Allergy (Verified 05/30/17 09:05) Home Medications: Home Meds Medication Instructions Recorded Confirmed Albuterol HFA [Ventolin HFA 90 0.09 mg IH PRN PRN 04/24/12 05/30/17 mcg/actuation (8 g)] Metformin HCl 1,000 mg PO BID 04/24/12 05/30/17 Budesonide/Formoterol Fumarate 160 mcg BID 03/03/13 05/30/17 [Symbicort 80-4.5 Mcg Inhaler] Lisinopril [Prinivil] 10 mg PO DAILY 08/26/16 05/30/17 Budesonide/Formoterol Fumarate 2 aer IH DAILY 05/30/17 05/30/17 [Symbicort] Dulaglutide [Trulicity] 0 mg SC QWK 05/30/17 05/30/17 Review of Systems - Physician Review All systems were reviewed & negative as marked: Yes - Review of Systems Constitutional: absent: Fevers, Night Sweats Eyes: absent: Vision Changes ENT: absent: Hearing Changes Respiratory: absent: SOB, Cough Cardiovascular: absent: Chest Pain Gastrointestinal: Abdominal Pain Genitourinary Male: absent: Dysuria, Frequency Musculoskeletal: absent: Arthralgias Skin: absent: Rash, Pruritis Neurological: absent: Headache Endocrine: absent: Diaphoresis, Polyuria Hemo/Lymphatic: absent: Adenopathy Psychiatric: absent: Anxiety, Depression Physical Exam Vital Signs Reviewed: Yes Vital Signs Temp Pulse Resp BP Pulse Ox 05/30/17 12:01 98.9 F 76 18 137/71 95 05/30/17 10:34 98.9 F 80 18 125/79 96 05/30/17 09:01 100 F H 92 H 18 115/82 96 Temperature: Febrile Blood Pressure: Normal Pulse: Tachycardic Respiratory Rate: Normal Appearance: Positive for: Well-Appearing, Non-Toxic, Comfortable Pain Distress: None Mental Status: Positive for: Alert and Oriented X 3 - Systems Exam Head: Present: Atraumatic, Normocephalic Pupils: Present: PERRL Extroacular Muscles: Present: EOMI Conjunctiva: Present: Normal Mouth: Present: Moist Mucous Membranes Neck: Present: Normal Range of Motion Respiratory/Chest: Present: Clear to Auscultation, Good Air Exchange. No: Respiratory Distress, Accessory Muscle Use Cardiovascular: Present: Regular Rate and Rhythm, Normal S1, S2. No: Murmurs Abdomen: Present: Tenderness (lower abdominal tenderness bilaterally) Back: Present: Normal Inspection Upper Extremity: Present: Normal Inspection. No: Cyanosis, Edema Lower Extremity: Present: Normal Inspection. No: Edema Neurological: Present: GCS=15, CN II-XII Intact, Speech Normal Skin: Present: Warm, Dry, Normal Color. No: Rashes Psychiatric: Present: Alert, Oriented x 3, Normal Insight, Normal Concentration Medical Decision Making ED Course and Treatment: 05/30/17 09:20 Impression: 56 year old male complaining of lower abdominal pain with associated nausea and non-bloody diarrhea for the past few days. Plan: -- Abdomen and Pelvis CT w/ contrast -- Urinalysis and Urine Culture -- Labs -- Pepcid, Zofran, Morphine, and IV Fluids -- Reassess and disposition Prior Visits: Notes and results from previous visits were reviewed. Patient was last seen in the emergency department on 08/26/16 for nausea,intermittent vomiting, and diarrhea for one week. Patient was admitted to hospitalist care for further evaluation. Progress Notes: - Lab Interpretations Lab Results: 05/30/17 10:31 05/30/17 10:31 Lab Results 05/30/17 11:57: Urine Color Yellow, Urine Appearance Clear, Urine pH 6.0, Ur Specific [place] <= 1.005, Urine Protein Negative, Urine Glucose (UA) Negative, Urine Ketones Negative, Urine Blood Negative, Urine Nitrate Negative, Urine Bilirubin Negative, Urine Urobilinogen 0.2, Ur Leukocyte Esterase Negative 05/30/17 10:31: Sodium 135, Potassium 4.1, Chloride 100, Carbon Dioxide 29, Anion Gap 11, BUN 15, Creatinine 1.0, Est GFR ( Amer) > 60, Est GFR (Non- Af Amer) > 60, Random Glucose 108, Calcium 8.9, Total Bilirubin 0.5, AST 40, ALT 54, Alkaline Phosphatase 53, Total Protein 7.7, Albumin 4.1, Globulin 3.6, Albumin/Globulin Ratio 1.1, Amylase 61, Lipase 101 05/30/17 10:31: WBC 7.2 D, RBC 4.00, Hgb 13.6 L, Hct 39.6 L, MCV 99.0, MCH 34.0 , MCHC 34.3, RDW 13.2, Plt Count 134, MPV 8.9, Gran % 62.7, Lymph % (Auto) 19.6 L, Johnson % (Auto) 13.5 H, Eos % (Auto) 3.9, Baso % (Auto) 0.3, Gran # 4.53, Lymph # 1.4, Johnson # 1.0 H, Eos # 0.3, Baso # 0.02 05/30/17 10:26: POC Glucose (mg/dL) 106 I have reviewed the lab results: Yes - RAD Interpretation Radiology Orders: 05/30/17 09:17 ABD PELVIS PO & IV CONTRAST [CT] Stat - Medication Orders Current Medication Orders: Discontinued Medications Famotidine (Pepcid) 20 mg IVP STAT STA Stop: 05/30/17 09:18 Last Admin: 05/30/17 10:39 Dose: 20 mg IVP Administration Document 05/30/17 10:39 OCS (Rec: 05/30/17 10:39 OCS [facility]) Charges for Administration # of IVP Administrations 1 Sodium Chloride (Sodium Chloride 0.9%) 1,000 mls @ 250 mls/hr IV .Q4H STA Stop: 05/30/17 13:16 Last Admin: 05/30/17 10:40 Dose: 250 mls/hr eMAR Start Stop Document 05/30/17 10:40 OCS (Rec: 05/30/17 10:40 OCS [facility]) Intravenous Solution Start Date 05/30/17 Start Time 10:40 End Date 05/30/17 End time 13:40 Total Infusion Time 180 Morphine Sulfate (Morphine) 4 mg IVP STAT STA Stop: 05/30/17 09:22 Last Admin: 05/30/17 10:39 Dose: 4 mg MAR Pain Assessment Document 05/30/17 10:39 OCS (Rec: 05/30/17 10:40 OCS [facility]) Pain Reassessment Is this a pain reassessment? Yes Sleep Is patient sleeping during reassessment? No Presence of Pain Presence of Pain Yes Pain Scale Used Pain Scale Used Numeric Location Left, Right or Bilateral Bilateral Upper or Lower Lower Pain Location Body Site Abdomen Description Description Constant Intensity of Pain at present 4 IVP Administration Document 05/30/17 10:39 OCS (Rec: 05/30/17 10:40 OCS [facility]) Charges for Administration # of IVP Administrations 1 Ondansetron HCl (Zofran Inj) 4 mg IVP STAT STA Stop: 05/30/17 09:18 Last Admin: 05/30/17 10:39 Dose: 4 mg IVP Administration Document 05/30/17 10:39 OCS (Rec: 05/30/17 10:39 OCS [facility]) Charges for Administration # of IVP Administrations 1 - Scribe Statement The provider has reviewed the documentation as recorded by the Scribe Shanti Cueva Provider Scribe Attestation: All medical record entries made by the Scribe were at my direction and personally dictated by me. I have reviewed the chart and agree that the record accurately reflects my personal performance of the history, physical exam, medical decision making, and the department course for this patient. I have also personally directed, reviewed, and agree with the discharge instructions and disposition. Disposition/Present on Arrival - Present on Arrival Any Indicators Present on Arrival: No History of DVT/PE: No History of Uncontrolled Diabetes: Yes Urinary Catheter: No History of Decub. Ulcer: No History Surgical Site Infection Following: None - Disposition Have Diagnosis and Disposition been Completed?: Yes Diagnosis: Colitis Disposition: HOME/ ROUTINE Disposition Time: 12:00 Condition: IMPROVED Discharge Instructions (ExitCare): Colitis (ED) Additional Instructions: Thank you for letting us take care of you today. The emergency medical care you received today was directed at your acute symptoms. If you were prescribed any medication, please fill it and take as directed. It may take several days for your symptoms to resolve. Return to the Emergency Department if your symptoms worsen, do not improve, or if you have any other problems. Please contact your doctor or call one of the physicians/clinics you have been referred to that are listed on the Patient Visit Information form that is included in your discharge packet. Bring any paperwork you were given at discharge with you along with any medications you are taking to your follow up visit. Our treatment cannot replace ongoing medical care by a primary care provider (PCP) outside of the emergency department. Thank you for allowing the [facility] team to be part of your care today. Follow up with your primary and GI doctor in 2-3 days for re-evaluation and further management. Prescriptions: Ciprofloxacin [Cipro] 500 mg PO BID #14 tab metroNIDAZOLE [Flagyl] 500 mg PO Q8 #21 tab predniSONE [Prednisone] 40 mg PO DAILY #10 tab Ranitidine HCl [Zantac] 150 mg PO BID #20 tablet Referrals: Rich Menon MD [Primary Care Provider] - Follow up with primary Forms: [employer] (Greek)
[2017-05-30 10:35] VITALS: TEMP 98.9
[2017-05-30 10:41] LABS: BASO # 0.02 K/mm3 (0.0-2.0); BASO % 0.3 % (0.0-3.0); EOS # 0.3 (0.0-0.7); EOS % 3.9 % (1.5-5.0); GRAN # 4.53 (1.4-6.5); GRAN % 62.7 % (50.0-68.0); HEMOGLOBIN 13.6 g/dL (14.0-18.0); LYMPH # 1.4 (1.2-3.4); LYMPH % 19.6 % (22.0-35.0); MEAN CORPUSCULAR HGB CONC 34.3 g/dl (31.0-37.0); MEAN PLATELET VOLUME 8.9 fl (7.0-11.0); MONO % 13.5 % (1.0-6.0); RED CELL DISTRIBUTION WIDTH 13.2 % (11.5-14.5); WHITE BLOOD COUNT 7.2 10^3/ul (4.5-11.0)
[2017-05-30] MEDS ORDERED: Iohexol 350 MG/100 ML VIAL ONE (10:47)
[2017-05-30 11:01] LABS: ALB/GLOB RATIO 1.1 (1.1-1.8); ALBUMIN 4.1 g/dL (3.0-4.8); ALT/SGPT 54 U/L (7-56); AMYLASE 61 U/L (35-125); AST/SGOT 40 U/L (17-59); BLOOD UREA NITROGEN 15 mg/dL (7-21); CALCIUM 8.9 mg/dL (8.4-10.5); GFR AFRICAN-AMERICAN > 60; GFR NON-AFRICAN AMERICAN > 60; LIPASE 101 U/L (23-300)
--- NOTE | 2017-05-30 11:43 | CT ---
PROCEDURE: CT Abdomen and Pelvis with contrast HISTORY: lower abdominal pain COMPARISON: Abdomen pelvis CT examination with contrast 08/27/2016. TECHNIQUE: Contrast dose: Radiation dose: Total exam DLP = mGy-cm. This CT exam was performed using one or more of the following dose reduction techniques: Automated exposure control, adjustment of the mA and/or kV according to patient size, and/or use of iterative reconstruction technique. FINDINGS: LOWER THORAX: Unremarkable. LIVER: Diffuse hepatic steatosis is appreciate without discrete mass evident. Subtle nodular surface of the liver may indicate cirrhosis once again. No discrete mass is seen within the liver specifically however. The left lobe remains prominent were compared to the right. GALLBLADDER AND BILE DUCTS: Unremarkable. PANCREAS: Unremarkable. No gross lesion or ductal dilatation. SPLEEN: Unremarkable. ADRENALS: Unremarkable. No mass. KIDNEYS AND URETERS: Unremarkable. No hydronephrosis. No solid mass. VASCULATURE: Unremarkable. No aortic aneurysm. BOWEL: There is thickening of the large bowel sparing only the mid to distal descending segment including the rectosigmoid. Liquid fecal material seen throughout the colon suggesting diarrhea. Consider likely inflammatory or infectious colitis with trace fluid seen the right lower quadrant. Mild thickening of segments of the terminal ileum is not excluded and therefore Crohn's disease should be considered. This is not definite and further clinical correlation is advised or other possibilities may be an ischemic or plasty etiologies and further clinical correlation is recommended. APPENDIX: Normal appendix. PERITONEUM: Trace right lower quadrant fluid which appears related to possible terminal ileal thickening the appendix not clearly identified however there is no CT pattern appendicitis at this time. . No free air. LYMPH NODES: Unremarkable. No enlarged lymph nodes. BLADDER: Unremarkable. REPRODUCTIVE: Obscured by a total replacement hardware bilaterally.. BONES: Status post bilateral shoulder replacements which obscure the prostate gland. OTHER FINDINGS: None. IMPRESSION: Findings suspicious for extensive segmental colitis affecting the majority colon therefore the patterns 8 near pancolitis. No abscess or free appear trace loosing right lower quadrant. No CT evidence of appendicitis directly however the appendix not identified. Clinically correlate further. Diarrhea suspected. Hepatic steatosis is again appreciated. Cirrhotic liver not excluded. Bilateral total hip replacements obscure the prostate gland.
[2017-05-30 12:02] VITALS: BP 137/71; PULSE 76; O2SAT 95
[2017-05-30 12:13] LABS: URINE BILIRUBIN NEGATIVE (NEGATIVE); URINE BLOOD NEGATIVE (NEGATIVE); URINE GLUCOSE (UA) NEGATIVE (NEGATIVE); URINE LEUKOCYTE ESTERASE NEGATIVE Leu/uL (NEGATIVE); URINE NITRATE NEGATIVE (NEGATIVE); URINE PROTEIN NEGATIVE mg/dL (<30 mg/dL); URINE UROBILINOGEN 0.2 E.U./dL (<1 E.U./dL)
[2017-05-30 12:18] LABS: URINE APPEARANCE CLEAR (CLEAR); URINE COLOR YELLOW (YELLOW)
== END 2017-05-30 12:45 | disposition home or self-care (01) ==
LOC: ED 08:24
DX: K52.9 Noninfective gastroenteritis and colitis, unspecified (principal); I10 Essential (primary) hypertension; E11.9 Type 2 diabetes mellitus without complications; Z87.891 Personal history of nicotine dependence
CPT/HCPCS: 74177; 80053; 81003; 82150; 82948; 83690; 85025; 87086; 96361; 96374; 96375; 99283; J2270; J2405; J7040; Q9966; Q9967